=== PATIENT | male | born 1995 | race Two or more races ===

== ENCOUNTER 2019-07-11 21:26 | Emergency (ER) | payer MEDICAID, OTHER ==
[~2019-07-11] VITALS: Ht 182.9 cm; Wt 81.6 kg
--- NOTE | 2019-07-11 22:16 | NUR ---
PT AAOX4. AMBULATORY. BIBS FOR C/O RFA PAIN S/P FALL FROM THE SKATEBOARD. PT ABLE TO MOVE FINGER. NO ACUTE DISTRESS NOTED. WILL CONTINUE TO MONITOR.
[2019-07-11] MEDS ORDERED: KETOROLAC TROMETHAMINE INJ 60 MG/2 ML VIAL IM ONE ×2 (22:30→22:43)
--- NOTE | 2019-07-11 22:42 | NUR ---
XRAY AT BEDSIDE.
[2019-07-11 23:23] VITALS: BP 122/78
--- NOTE | 2019-07-11 23:23 | NUR ---
Patient discharged to home in stable condition. Written and verbal after care instructions given. Patient verbalizes understanding of instruction. PT ambulated with steady gait.
== END 2019-07-11 23:25 | disposition home or self-care (01) ==
LOC: ER 21:28
DX: S50.11XA Contusion of right forearm, initial encounter (principal); V00.131A Fall from skateboard, initial encounter; Y93.51 Activity, roller skating (inline) and skateboarding; Y92.89 Other specified places as the place of occurrence of the external cause; Y99.8 Other external cause status
CPT/HCPCS: 73080; 73090; 73100; 96372; 99284; J1885